=== PATIENT | female | born 1965 | race Caucasian/White ===

== ENCOUNTER 2017-07-04 12:39 | Outpatient (CLI) | payer BC ==
--- NOTE | 2017-07-04 13:52 | ULT ---
PELVIC ULTRASOUND: Date: 07/04/17 HISTORY: Irregular and heavy periods. FINDINGS: Real-time images of the pelvis were obtained transabdominally, as well as with an endovaginal probe. Uterus measures 5.0 x 5.3 x 9.6 cm. Endometrium is thickened at 1.4 cm. The fundus of the uterus is v jose heterogeneous with multiple small fibroids, the largest appears to be approximately 1.4 cm. The right adnexa is not visualized. The left ovary is normal in appearance. DOPPLER EVALUATION WITH SPECTRAL ANALYSIS: Normal flow shown to left ovary. IMPRESSION: 1. Fibromatous appearing uterus with a thickened endometrium. 2. Nonvisualization of the right ovary. 3. Normal appearing left adnexa. POS: [facility]
== END 2017-07-04 12:40 | disposition home or self-care (01) ==
LOC: SCSULT 12:39
PROVIDERS: ATTEND Family Medicine
DX: N92.1 Excessive and frequent menstruation with irregular cycle (principal); R93.8 Abnormal findings on diagnostic imaging of other specified body structures
CPT/HCPCS: 76856

== ENCOUNTER 2017-08-05 15:40 | Outpatient (CLI) | payer BC ==
--- NOTE | 2017-08-06 07:57 | MRI ---
MRI BRAIN NONCONTRAST: HISTORY: A 52-year-old female with dizziness. FINDINGS: The ventricles are normal in size and configuration. There is no restricted diffusion, midline shift or any other mass effect, recent intraaxial hemorrhage, or extraaxial fluid collection. There are a few scattered punctate T2-hyperintensities in the cerebral white matter consistent with mild chronic ischemic white matter changes due to mild microvascular atherosclerosis. IMPRESSION: 1. Mild chronic ischemic white matter changes. 2. Otherwise negative. jn[] POS: [facility]
== END 2017-08-05 15:41 | disposition home or self-care (01) ==
LOC: SCSMRI 15:40
PROVIDERS: ATTEND Family Medicine
DX: G46.8 Other vascular syndromes of brain in cerebrovascular diseases (principal); G93.9 Disorder of brain, unspecified
CPT/HCPCS: 70551

== ENCOUNTER 2019-12-30 10:51 | Outpatient (CLI) | payer OTHER ==
--- NOTE | 2019-12-30 13:54 | ULT ---
RIGHT UPPER QUADRANT ULTRASOUND: 12/30/19 HISTORY: History of abdominal pain and nausea. FINDINGS: The liver demonstrates increased echogenicity consistent with fatty infiltration. No focal mass or in trahepatic ductal dilatation is seen. No gallstones, gallbladder wall thickening or pericholecystic f luid is identified. The common duct measures 3 mm in diameter. The right kidney and visualized portio ns of the pancreas appear normal. No free fluid is seen. IMPRESSION: 1. Fatty liver. 2. No evidence of cholelithiasis. POS: [facility]
== END 2019-12-30 10:52 | disposition home or self-care (01) ==
LOC: SCSULT 10:51
PROVIDERS: ATTEND Family Medicine
DX: K80.20 Calculus of gallbladder without cholecystitis without obstruction (principal); K76.0 Fatty (change of) liver, not elsewhere classified
CPT/HCPCS: 76705

== ENCOUNTER 2020-05-12 11:58 | Outpatient (CLI) | payer OTHER ==
--- NOTE | 2020-05-12 12:53 | RAD ---
EXAM: XR Hand Rt 3 View STANDARD PROVIDED CLINICAL HISTORY: Pain status post injury COMPARISON: None FINDINGS: There is a distracted avulsion fracture involving the dorsal base of the small digit distal phalanx. No additional fracture is evident. Alignment appears anatomic. Joint spaces appear preserved. IMPRESSION: Distracted avulsion fracture involving the dorsal base of the small digit distal phalanx.
== END 2020-05-12 11:59 | disposition home or self-care (01) ==
LOC: BICRAD 11:58
PROVIDERS: ATTEND Family Medicine
DX: M79.641 Pain in right hand (principal); S62.636A Displaced fracture of distal phalanx of right little finger, initial encounter for closed fracture

== ENCOUNTER 2023-07-16 09:18 | Outpatient (CLI) | payer BC | END 2023-07-16 09:19 | disposition home or self-care (01) | LOC: BICMAMMO 09:18 | PROVIDERS: ATTEND Internal Medicine Rheumatology | DX: Z13.820 Encounter for screening for osteoporosis (principal); Z78.0 Asymptomatic menopausal state; M85.89 Other specified disorders of bone density and structure, multiple sites | CPT/HCPCS: 77080 ==